=== PATIENT | female | born 1980 | race Caucasian/White ===

== ENCOUNTER 2024-01-02 10:23 | Outpatient (CLI) | payer OTHER, SELFPAY ==
--- OUTSIDE RECORDS SUMMARY | 2024-01-02 10:27 | XMS_ITS | Data Portability ---
Author Name Unknown Address [address] [place] [address] Phone [phone] Organization [facility], Main Office Address [address] [place] [address] Assessment Encounter Date Assessment Date Assessment LastModified by Organization Details LastModified Time 01/24/2020 01/24/2020 1. Biopsy-proven basal carcinoma left nasal sidewall here for Mohs surgery. Risk benefits reviewed verbally and with diagrams on the digital board. Discussed potential flap as the lesion is near the supra nasal tip we want to minimize violating cosmetic units. Discussed with bleeding, bruising, chance of infection chance recurrence. Mohs case number [id number]. Area cleansed with Betadine followed by alcohol cosmetic units marked prior to anesthesia. Anesthetized 1% lidocaine with epinephrine. Stage I: Curette debulk. 1 to 1/2 mm margins taken down to the deep dermis revealing no residual basal carcinoma. Total stages 1, total sections 1, final defect 0.5 x 0.7 cm. We performed an advancement flap with redundancies removed superior incised along the alar crease advanced medially hemostasis obtained with electrocautery and pressure. Closed with 4-0 Vicryl and a 5-0 nylon to be removed in [place] in 8 days. Pressure dressing applied, wound care instructions verbally and written given. Cell phone number given. The flap was undermined 2 cm in all directions there for less than 10 cm??. [email or web address] Not available 01/24/2020 22:58:03 Plan of Treatment Reminders Order Date Submit Date Provider Last Modified By Organization Details Last Modified Time Details Appointments None record ed. Lab None record ed. Referral None record ed. Procedures None record ed. Surgeries None record ed. Imaging None record ed. Medication Orders None record ed. Patient TargetsNo targets recorded. Patient InstructionsNo instructions recorded. Reason for Referral None Reported. Medical Equipment None Reported. Vitals None Recorded Social History None recorded. Functional Status None recorded. Mental Status None recorded. Family History Nothing Reported. Medical History No medical history recorded. Gynecological HistoryNo gynecological history recorded. Obstetrics History GPAL:G 0 P 0 0 0 0 Past Encounters Encounter ID Performer Location Encounter Start Date Encounter Closed Date Diagnosis/Indication [id number] Emily Novak MD Main [facility] [address] [facility] [place] [address] 01/24/2020 08:56:27 01/24/2020 22:59:37 Basal cell carcinoma of nose Health Concerns Section Related Observation LastModified by Organization Detai ls LastModified Time None Recorded Concern Status LastModified by Organization Details LastModified Time None Recorded Advance Directives Directive None Recorded Payers Encounter Date Sequence Insurance Name Policy Number Policy Barnett Covered Member ID Barnett Member ID Guarantor Name 01/24/2020 1 PREFERREDONE Catarina Breaux [id number] Catarian Braeux Notes Date Note Type Note Provider Name and Address Organization Details Recorded Time 01/24/2020 text/html HPI Notes: 39-year-old female presents today for Mohs surgery of a biopsy-proven basal carcinoma on the left nasal sidewall. She is accompanied by her . Her past medical history family history social history are known to me from [facility]. States she is not too nervous comfortable with today's visit. Emily Novak MD [address] [facility], [address], [facility] 01/24/2020 22:59:27 OBGyn Episode No OBEpisode recorded.
--- OUTSIDE RECORDS SUMMARY | 2024-01-02 10:27 | XMS_ITS | Clinical Summary ---
Author Name Unknown Organization [facility] Address [place], [place] [address] Care Team Providers Care Dairy Nutrition Specialist Name Role Phone Pcp, No Primary Care Provider Unavailabl e Allergies No known active allergies Medications Medication Sig Dispensed Refills Start Date End Date Status levonorgestrel-ethiny l estrad, 0.1mg-20mcg, (ALESSE-28) 0.1-20 mg-mcg tabletIndications:Irr egular periods Take 1 Tablet by mouth once daily. 84 Tablet 3 08/29/2021 Active Active Problems Problem Noted Date Diagnosed Date Generalized anxiety disorder 04/24/2017 Issue of repeat prescription 03/13/2017 Overview: Scheduled psychiatric evaluation for ADHD. Trial Adderall XR 25mg daily. #30 [employer]. CSA on file. Toxassure in future. Low HDL (under 40) 03/12/2017 Obesity 05/30/2010 Myopia 08/21/2006 DEPRESSIVE DISORD, MAJOR SNGL EPISD, UNCPEC 02/2002 MALAISE AND FATIGUE NEC 04/27/2002 HYPERHIDROSIS 04/27/2002 ACNE NEC 10/02/2000 Resolved Problems Problem Noted Date Diagnosed Date Resolved Date Supervision of other normal 04/21/2012 01/12/2013 Overview: GBS negative Large for date Declines flu shot tdap given 10/05/12 CONTRACEPTIVE PRESCRIPTION, ORAL AGENT 05/28/2001 01/12/2013 Immunizations Name Administration Dates Next Due DTP 10/10/1999 MMR 10/10/1999 Oral Polio Vaccine 10/10/1999 Td (Age >=7 Years) 05/03/1997 Tdap 10/05/2012 Family History Medical History Relation Name Comments Cancer-breast Maternal Aunt x2 Diabetes Maternal Aunt Cancer-breast Maternal Grandmother Diabetes Maternal Grandmother Genetic Other mother: A\T\W~f ather: A\T\W~grprs: alive, elderly~sibs: A\T\W~MGGM DM~maternal aunt hypothyroid ~no h/o anesthesia reactions~no CA, CAD, HTN Cancer-ovarian No Family History Relation Name Status Comments Father Alive Maternal Aunt Maternal Grandmother Mother Alive Other Social History Tobacco Use Types Packs/Day Years Used Date Smoking Tobacco: Never Smokeless Tobacco: Never Tobacco Cessation:Counseling Given: Yes Alcohol Use Standard Drinks/Week Comments No 0 (1 standard drink = 0.6 oz pur e alcohol) Alcoholic Drinks/day: 0 PHQ-2 Answer Date Recorded PHQ-2 TOTAL SCORE 0 08/29/2021 Social Connections Answer Date Recorded Frequency of Communication with Friends and Fami ly Not on file 11/24/2021 Financial Resource Strain Answer Date R ecorded Difficulty of Paying Living Expenses Not on file 11/24/2021 Difficulty of Paying Living Expenses Not on file 11/24/2021 Sex and Gender Information Value Date Recorded Sex Assigned at Not on file Gender Identity Not on file Sexual Orientation Not on file Obstetrics History Para Term AB IAB SAB Ectopic Multiple Livin g Live Births 5 4 4 1 1 4 Date Outcome GA Total Labor Labor/2nd/3rd Weight Sex Delivery Anes PTL Deloris A1 A5 Name Cl in 04/17 Term 41w 0d 16h 00m/ 3.52 kg (7 lb 12 oz) F Mario thorpe Austy n 12/16 Term 41w 0d 3.66 kg (8 lb 1 oz) M Mario thorpe [place] r Comments:induced - gel /pitocin - vacuum for distress 12/20 Term 39w 0d 7h 00m/ 3.54 kg (7 lb 13 oz) M Mario thorpe 7 8 [place] Comments:induced gel 02/06 SAB 12/01 Term 39w 4d 3.83 kg (8 lb 7 oz) 5 9 jimi Comments:Shoulder dyst ocia/vaccum Last Filed Vital Signs Vital Sign Reading Time Taken Comments Blood Pressure 123/84 08/29/2021 4:03 PM CDT Pulse 93 08/29/2021 4:03 PM CDT Temperature 36.7 ??C (98 ??F) 06/25/2018 2:57 PM CDT Respiratory Rate 18 04/27/2002 12:0 0 AM CDT Oxygen Saturation 100% 08/29/2021 4:03 PM CDT Inhaled Oxygen Concentration - - Weight 85.6 kg (188 lb 11.2 oz) 08/29/2021 4:03 PM CDT Height 166.5 cm (5' 5.55) 08/29/2021 4:03 PM CD T Body Mass Index 30.88 08/29/2021 4:03 PM CDT Plan of Treatment Health Maintenance Due Date Last Done Comments COVID-19 vaccine series (#1) 01/21/1982 Hepatitis C screening for age 18-79 1999 BMI (ht and wt on same day) for age 18+ 08/29/2022 08/29/2021, 09/18/2020, 06/25/2018, Additional history exists Depression screening for age 12+ 08/29/2022 08/29/2021, 08/29/2021, 06/25/2018, Additional history exists Pap test for age 21-65 08/29/2022 , 11/02/2019, 11/02/2019, Additional history exists Tetanus booster 10/05/2022 10/05/2012, 04/25 ([facility] of [facility]), 05/03/1997 Influenza for age 9-49 07/25/2023 HIV for age 15-65 Completed 04/21/2012, 05/13/2008 Tdap Completed 10/05/2012 Pneumococcal series for age 6-64 Aged Out No longer eligible based on patient's age to complete this topic Care Teams Dairy Nutrition Specialist Relationship Specialty Start Date End Date Pcp, No . PCP - General 06/05/23
--- NOTE | 2024-01-02 10:45 | CRLHL7_ITS ---
For Patients: As a result of the Cures Act, medical imaging exams and procedure reports are released immediately into your electronic medical record. You may view this report before your referring provider. If you have questions, please contact your health care provider. DIGITAL DIAGNOSTIC BILATERAL MAMMOGRAM USING TOMOSYNTHESIS AND COMPUTER-AIDED DETECTION RIGHT BREAST ULTRASOUND CLINICAL HISTORY: RIGHT breast lump. COMPARISON: 11/28/2022, 08/01/2021. TECHNIQUE: Digital BILATERAL mammogram in four projections. Tomosynthesis and CAD utilized. Real-time ultrasound imaging of RIGHT breast with imaging documentation. BREAST COMPOSITION: There are areas of scattered fibroglandular density. FINDINGS: 3D CC/MLO BILATERAL mammogram images submitted. No suspicious masses or architectural distortion. Benign calcifications are present. No adenopathy. Targeted RIGHT breast ultrasound performed. At 7 o`clock 4 cm from the nipple, there is a small cyst located just beneath the skin in the epidural area measuring 6 x 2 x 5 millimeters. No abnormal vascularity. IMPRESSION: Benign cyst located just beneath the skin. No suspicious findings. No malignancy. RECOMMENDATIONS: Annual BILATERAL screening mammography. Clinical follow-up. Results and recommendations discussed with the patient. BI-RADS Category 2: Benign A lay language report of this examination will be provided to the patient. Dictated by Christopher Costa MD @ 01/02/2024 12:13:26 PM SP/Dictated by: Christopher Costa MD @ 01/02/2024 12:13:00 PM (Electronically Signed)
--- NOTE | 2024-01-02 11:15 | CRLHL7_ITS ---
For Patients: As a result of the Century Cures Act, medical imaging exams and procedure reports are released immediately into your electronic medical record. You may view this report before your referring provider. If you have questions, please contact your health care provider. PLEASE SEE DIGITAL DIAGNOSTIC BILATERAL MAMMOGRAM PERFORMED THE SAME DAY. CRL/sp SP/Dictated by: Christopher Costa MD @ 01/02/2024 12:13:00 PM (Electronically Signed)
== END 2024-01-02 10:24 | disposition home or self-care (01) ==
LOC: MAMMO 10:24
PROVIDERS: PCP Family Medicine; Visit Provider Advanced Practice Midwife
DX: N63.10 Unspecified lump in the right breast, unspecified quadrant (principal); N60.01 Solitary cyst of right breast; L98.8 Other specified disorders of the skin and subcutaneous tissue; N64.9 Disorder of breast, unspecified
CPT/HCPCS: 76642; 77066; G0279